=== PATIENT | female | born 1970 | race Caucasian/White ===

== ENCOUNTER 2017-11-07 18:20 | Emergency (ER) | payer MEDICARE, MEDICAID ==
[~2017-11-07] VITALS: Ht 167.6 cm; Wt 59.1 kg
[~2017-11-07 18:20] MED LIST: ALBU18HF2 IH; BUSP15TA3 PO; CHLO100T24 PO; GABA-532 PO; IBUP-1984 PO; LIDO700A32 TOP; LORA2TAB PO; NABU-102 PO; RISP1TAB47 PO; TOLT2TAB2 PO; TRAZ-143 PO
[2017-11-07 18:43] VITALS: BP 124/75
[2017-11-07] MEDS ORDERED: ACET1TAB12 PO (20:28)
[2017-11-07] MEDS: ketorolac trometh inj. 60 MG/2 ML VIAL IM ONE (20:31)
== END 2017-11-07 20:41 | disposition home or self-care (01) ==
LOC: ER 18:21
DX: S22.31XD Fracture of one rib, right side, subsequent encounter for fracture with routine healing (principal); G89.29 Other chronic pain; F12.10 Cannabis abuse, uncomplicated; F15.10 Other stimulant abuse, uncomplicated; Z88.1 Allergy status to other antibiotic agents; Z88.6 Allergy status to analgesic agent; Z79.899 Other long term (current) drug therapy; Z56.0 Unemployment, unspecified; W18.09XD Striking against other object with subsequent fall, subsequent encounter
CPT/HCPCS: 71045; 99283; J1885

== ENCOUNTER 2018-03-19 09:43 | Emergency (ER) | payer MEDICARE, MEDICAID ==
[~2018-03-19] VITALS: Ht 167.6 cm; Wt 55.0 kg
[~2018-03-19 09:43] MED LIST changes: +ACET1TAB12 PO; -IBUP-1984 PO; -TRAZ-143 PO; +TRAZ-218 PO
[2018-03-19] MEDS ORDERED: normal saline 1000ML IV soln IVB ONE ×2 (10:40)
[2018-03-19 11:09] LABS: BASOPHILS % (AUTO) 0.2 % (0-1); EOSINOPHILS # (AUTO) 0.1 X10'3 (0-0.9); EOSINOPHILS % (AUTO) 1.4 % (0-6); HEMATOCRIT 43.3 % (35.0-45.0); HEMOGLOBIN 14.9 g/dl (12.0-16.0); LYMPHOCYTES # (AUTO) 1.8 X10'3 (1.1-4.8); LYMPHOCYTES % (AUTO) 18.9 % (21-51); MEAN CORPUSCULAR HEMOGLOBIN 31.8 PG (27.0-31.0); MEAN CORPUSCULAR HGB CONC 34.3 % (33.0-36.5); MEAN CORPUSCULAR VOLUME 92.7 FL (78-98); MEAN PLATELET VOLUME 8.1 FL (7.4-10.4); MONOCYTES # (AUTO) 0.5 X10'3 (0-0.9); MONOCYTES % (AUTO) 5.2 % (2-12); NEUTROPHILS % (AUTO) 74.3 % (42-75); PLATELET COUNT 287 X10'3 (140-440); RED BLOOD COUNT 4.67 X10'6 (4.20-5.60); RED CELL DISTRIBUTION WIDTH 14.6 % (11.5-14.5); WHITE BLOOD COUNT 9.4 X10'3 (4.5-11.0)
[2018-03-19 11:14] VITALS: BP 133/74
[2018-03-19 11:28] LABS: ALANINE AMINOTRANSFERASE 16 U/L (12-78); ALKALINE PHOSPHATASE 68 IU/L (46-116); ANION GAP 8 (8-16); ASPARTATE AMINO TRANSFERASE 23 U/L (10-37); BILIRUBIN,TOTAL 0.3 MG/DL (0.1-1.0); BLOOD UREA NITROGEN 10 MG/DL (7-18); BUN/CREATININE RATIO 8.9 (6.6-38.0); CALCIUM 9.3 MG/DL (8.5-10.1); CHLORIDE 97 MMOL/L (99-107); CREATININE 1.12 MG/DL (0.40-0.90); GLUCOSE 129 MG/DL (70-104); POTASSIUM 4.1 MMOL/L (3.5-5.1); SODIUM 131 MMOL/L (135-145); TOTAL CARBON DIOXIDE 25.9 MMOL/L (24-32); TOTAL PROTEIN 8.1 G/DL (6.4-8.2); eGFR 52 ML/MIN
[2018-03-19 11:39] LABS: MAGNESIUM 1.8 MG/DL (1.5-2.4)
[2018-03-19 12:47] LABS: CLARITY,URINE CLEAR (Clear); COLOR,URINE STRAW (Yellow); GLUCOSE, URINE NEGATIVE (Neg); KETONES,URINE NEGATIVE (Neg); LEUKOCYTE ESTERASE ,URINE NEGATIVE (Neg); NITRITES, URINE NEGATIVE (Neg); OCCULT BLOOD,URINE NEGATIVE (Neg); PROTEIN,URINE NEGATIVE (Neg); UA COLLECTION TYPE CLN CATCH MIDSTREAM; UROBILINOGEN,URINE 0.2 E.U/dL (0.2-1.0)
== END 2018-03-19 13:16 | disposition home or self-care (01) ==
LOC: ER 09:44
DX: E86.0 Dehydration (principal); R42 Dizziness and giddiness; I95.1 Orthostatic hypotension; G89.29 Other chronic pain; F12.90 Cannabis use, unspecified, uncomplicated; F15.90 Other stimulant use, unspecified, uncomplicated; F17.200 Nicotine dependence, unspecified, uncomplicated; Z90.710 Acquired absence of both cervix and uterus; Z56.0 Unemployment, unspecified; Z88.1 Allergy status to other antibiotic agents; Z88.6 Allergy status to analgesic agent; Z79.899 Other long term (current) drug therapy
CPT/HCPCS: 36415; 70450; 71045; 80053; 81003; 83735; 84443; 84484; 85025; 93005; 96360; 99285; J7030

== ENCOUNTER 2018-08-11 08:32 | Outpatient (CLI) | payer MEDICARE, MEDICAID | END 2018-08-11 23:59 | disposition home or self-care (01) | LOC: RAD 08:32 | DX: R94.31 Abnormal electrocardiogram [ECG] [EKG] (principal); F25.1 Schizoaffective disorder, depressive type; F17.200 Nicotine dependence, unspecified, uncomplicated; J44.9 Chronic obstructive pulmonary disease, unspecified; Z79.899 Other long term (current) drug therapy; Z90.710 Acquired absence of both cervix and uterus | CPT/HCPCS: 93005 ==

== ENCOUNTER 2022-11-22 15:00 | Emergency (ER) | payer MEDICARE, MEDICAID ==
[~2022-11-22] VITALS: Ht 167.6 cm; Wt 84.8 kg
[~2022-11-22 15:00] MED LIST changes: -CHLO100T24 PO; +CHLO100T7 PO; -TOLT2TAB2 PO; +TOLT2TAB20 PO; -TRAZ-218 PO; +TRAZ-251 PO
[2022-11-22 15:02] VITALS: BP 151/72
[2022-11-22] MEDS ORDERED: morphine 4 MG/ML inj SYRINge IM ONE (15:25)
[2022-11-22] MEDS ORDERED: ondansetron 4mg rapidly disintigrating tab PO ONE (15:25)
[2022-11-22] MEDS ORDERED: TRAM50TA2 PO (16:10)
== END 2022-11-22 16:17 | disposition home or self-care (01) ==
LOC: ER 15:00
DX: M47.9 Spondylosis, unspecified (principal); M54.59 Other low back pain; F12.10 Cannabis abuse, uncomplicated; F15.10 Other stimulant abuse, uncomplicated; F32.A Depression, unspecified; F20.9 Schizophrenia, unspecified; G89.29 Other chronic pain; Z59.00 Homelessness unspecified; Z88.1 Allergy status to other antibiotic agents; Z88.6 Allergy status to analgesic agent; Z79.899 Other long term (current) drug therapy; Z79.1 Long term (current) use of non-steroidal anti-inflammatories (NSAID); Z79.2 Long term (current) use of antibiotics
CPT/HCPCS: 72131; 96372; 99285; J2270

== ENCOUNTER 2023-12-19 14:46 | Emergency (ER) | payer MEDICARE, MEDICAID ==
[~2023-12-19] VITALS: Ht 167.6 cm; Wt 81.8 kg
[~2023-12-19 14:46] MED LIST changes: +CHLO100T47 PO; -CHLO100T7 PO
[2023-12-19 14:51] VITALS: BP 120/76; PULSE 103; O2SAT 95
[2023-12-19 16:38] LABS: BILIRUBIN,URINE SMALL (Neg); CLARITY,URINE SLIGHTLY CLOUDY (Clear); COLOR,URINE YELLOW (Yellow); GLUCOSE, URINE NEGATIVE (Neg); KETONES,URINE NEGATIVE (Neg); LEUKOCYTE ESTERASE ,URINE NEGATIVE (Neg); NITRITES, URINE POSITIVE (Neg); OCCULT BLOOD,URINE NEGATIVE (Neg); PH,URINE 5.5 (4.8-8.0); PROTEIN,URINE NEGATIVE (Neg); UROBILINOGEN,URINE 0.2 E.U/dL (0.2-1.0)
[2023-12-19 16:43] LABS: UA COLLECTION TYPE CLN CATCH MIDSTREAM; URINE AMPHETAMINE SCREEN POSITIVE (Neg); URINE BARBITUATE SCREEN NEGATIVE (Neg); URINE BENZODIAZEPINES SCREEN NEGATIVE (Neg); URINE CANNABINOID SCREEN POSITIVE (Neg); URINE COCAINE SCREEN NEGATIVE (Neg); URINE METHADONE SCREEN NEGATIVE (Neg); URINE OPIATE SCREEN NEGATIVE (Neg); URINE PHENCYCLIDINE SCREEN NEGATIVE (Neg)
[2023-12-19 17:11] LABS: RBC,URINE NONE SEEN /HPF (0-2)
[2023-12-19 17:12] LABS: BACTERIA,URINE 4+ /HPF (Neg); HYALINE CASTS 0-3 /LPF (NEGATIVE); YEAST FEW /HPF (NEGATIVE)
[2023-12-19 17:13] LABS: SQUAMOUS EPITHELIAL CELL,UR MANY /LPF (FEW)
[2023-12-19] MEDS ORDERED: HYDROmorphone 1 mg/ml syringe IM ONE (18:35)
[2023-12-19] MEDS ORDERED: ketorolac trometh. 30mg/ml inj. IV ONE (18:35)
[2023-12-19] MEDS: cephalexin 500mg capsule PO ONE (18:43)
[2023-12-19 18:44] VITALS: RESP 18
[2023-12-19] MEDS: ketorolac tromethamine 15mg/ml inj. IV ONE (18:44)
[2023-12-19] MEDS ORDERED: CEPH-585 PO (18:58)
[2023-12-19 19:19] VITALS: TEMP 98.8
== END 2023-12-19 19:21 | disposition left against medical advice (07) ==
LOC: ER 14:46
DX: M47.812 Spondylosis without myelopathy or radiculopathy, cervical region (principal); M47.9 Spondylosis, unspecified; F15.90 Other stimulant use, unspecified, uncomplicated; N39.0 Urinary tract infection, site not specified; G89.29 Other chronic pain; M54.9 Dorsalgia, unspecified; F12.90 Cannabis use, unspecified, uncomplicated; Z88.8 Allergy status to other drugs, medicaments and biological substances; F32.A Depression, unspecified; F20.9 Schizophrenia, unspecified; Z90.49 Acquired absence of other specified parts of digestive tract; F17.200 Nicotine dependence, unspecified, uncomplicated
CPT/HCPCS: 36415; 80305; 80320; 81001; 93005; 96374; 99284; J1885